=== PATIENT | male | born 1985 | race Hispanic/Latino ===

== ENCOUNTER 2016-09-23 01:36 | Emergency (ER) | payer OTHER ==
[2016-09-23 01:56] VITALS: BMI 30.1
--- NOTE | 2016-09-23 02:41 | ED PDOC ---
Arrival/HPI - General Chief Complaint: Body Fluid Exposure Time Seen by Provider: 09/23/16 01:47 Historian: Patient - History of Present Illness Narrative History of Present Illness (Text): 09/23/16 02:15 Pratik Wells 31 year old male who presents to the emergency department for medical clearance following saliva exposure to the eye. Patient is [employer] who brought. Denies any other complaints at this time. Time/Duration: Prior to Arrival Symptom Onset: Sudden Severity Level: Mild Activities at Onset: Significant Past Medical History - Provider Review Nursing Documentation Reviewed: Yes - Infectious Disease Hx of Infectious Diseases: None - Psychiatric Hx Substance Use: No - Surgical History Hx Orthopedic Surgery: Yes (right elbow 2002) - Anesthesia Hx Anesthesia: No Hx Anesthesia Reactions: No Hx Malignant Hyperthermia: No Family/Social History - Physician Review Nursing Documentation Reviewed: Yes Family/Social History: No Known Family HX Smoking Status: Never Smoked Hx Alcohol Use: Yes Frequency of alcohol use: Socially Hx Substance Use: No Allergies/Home Meds Allergies/Adverse Reactions: Allergies No Known Allergies Allergy (Verified 09/23/16 01:53) Home Medications: Home Meds Medication Instructions Recorded Confirmed Mv-Mn/FA/Lycopene/Lut/Hb#178 [Radu 1 tab PO DAILY 09/23/16 09/23/16 Multivit For Men Caplet] Review of Systems - Review of Systems Constitutional: Normal. absent: Fatigue, Fevers Respiratory: Normal. absent: SOB, Cough Cardiovascular: Normal. absent: Chest Pain Gastrointestinal: Normal Neurological: Normal. absent: Headache, Dizziness Psychiatric: Normal Physical Exam Vital Signs Reviewed: Yes Vital Signs Temp Pulse Resp BP Pulse Ox 09/23/16 04:03 97.6 F 78 16 125/51 L 98 09/23/16 01:56 98.8 F 84 18 129/82 97 Temperature: Afebrile Blood Pressure: Normal Pulse: Regular Respiratory Rate: Normal Appearance: Positive for: Well-Appearing, Non-Toxic, Comfortable Pain Distress: None Mental Status: Positive for: Alert and Oriented X 3 - Systems Exam Head: Present: Atraumatic, Normocephalic Pupils: Present: PERRL Conjunctiva: Present: Normal Respiratory/Chest: Present: Clear to Auscultation, Good Air Exchange. No: Respiratory Distress, Accessory Muscle Use Cardiovascular: Present: Regular Rate and Rhythm, Normal S1, S2. No: Murmurs Abdomen: Present: Normal Bowel Sounds. No: Tenderness, Distention, Peritoneal Signs Neurological: Present: GCS=15, CN II-XII Intact, Speech Normal Skin: Present: Warm, Dry, Normal Color. No: Rashes Psychiatric: Present: Alert, Oriented x 3, Normal Insight, Normal Concentration Medical Decision Making ED Course and Treatment: 09/23/16 02:40 Impression: A 31 year old male who presents to the emergency department for evaluation of saliva exposure to the eye. Plan: -- labs -- Hepatitis B surface AB -- Hepatitis Panel -- HIV 1&2 -- Reassess and disposition Progress Notes: 09/23/16 06:08 Negative rapid HIV. Patient stable for discharge. - Lab Interpretations Lab Results: 09/23/16 02:30 09/23/16 02:30 Lab Results 09/23/16 03:51: HIV-1 Ab Rapid Screen Non reactive 09/23/16 02:30: WBC 4.5, RBC 4.44, Hgb 13.1 L, Hct 37.7 L, MCV 84.9, MCH 29.5, MCHC 34.7, RDW 13.8, Plt Count 175, MPV 10.4, Gran % 43.0 L, Lymph % (Auto) 42.5 H, [place] % (Auto) 9.5 H, Eos % (Auto) 4.6, Baso % (Auto) 0.4, Gran # 1.95, Lymph # 1.9, [place] # 0.4, Eos # 0.2, Baso # 0.02, Sodium 138, Potassium 3.5 L, Chloride 102, Carbon Dioxide 24, Anion Gap 16, BUN 24 H, Creatinine 1.0, Est GFR ( Amer) > 60, Est GFR (Non-Af Amer) > 60, Random Glucose 94, Calcium 9.3, Total Bilirubin 0.5, AST 42, ALT 49, Alkaline Phosphatase 72, Total Protein 7.6, Albumin 4.4, Globulin 3.2, Albumin/Globulin Ratio 1.4, Hepatitis A IgM Ab Negative, Hep Bs Antigen Negative, Hep Bs Antibody Positive, Hep B Core IgM Ab Negative, Hepatitis C Antibody Negative, HIV 1&2 Antibody Screen Negative I have reviewed the lab results: Yes - Scribe Statement The provider has reviewed the documentation as recorded by the Soye Nisa Oliva Provider Attestation: All medical record entries made by the Rebecca were at my direction and personally dictated by me. I have reviewed the chart and agree that the record accurately reflects my personal performance of the history, physical exam, medical decision making, and the department course for this patient. I have also personally directed, reviewed, and agree with the discharge instructions and disposition. Disposition/Present on Arrival - Present on Arrival Any Indicators Present on Arrival: No History of DVT/PE: No History of Uncontrolled Diabetes: No Urinary Catheter: No History of Decub. Ulcer: No History Surgical Site Infection Following: None - Disposition Have Diagnosis and Disposition been Completed?: Yes Diagnosis: Exposure to blood or body fluid Disposition: HOME/ ROUTINE Disposition Time: 05:13 Condition: STABLE Additional Instructions: Please follow up with your doctor for lab results. Return to the ER for any other concerns.
[2016-09-23 02:52] LABS: ADD MANUAL DIFF? NO
[2016-09-23 03:08] LABS: BASO # 0.02 K/mm3 (0.0-2.0); BASO % 0.4 % (0.0-3.0); EOS # 0.2 (0.0-0.7); EOS % 4.6 % (1.5-5.0); GRAN # 1.95 (1.4-6.5); HEMATOCRIT 37.7 % (42.0-52.0); LYMPH # 1.9 (1.2-3.4); LYMPH % 42.5 % (22.0-35.0); MEAN CELL VOLUME 84.9 fL (80.0-105.0); MEAN CORPUSCULAR HEMOGLOBIN 29.5 pg (25.0-35.0); MEAN CORPUSCULAR HGB CONC 34.7 g/dl (31.0-37.0); MEAN PLATELET VOLUME 10.4 fl (7.0-11.0); MONO # 0.4 (0.1-0.6); MONO % 9.5 % (1.0-6.0); PLATELET COUNT 175 10^3/uL (120.0-450.0); RED CELL DISTRIBUTION WIDTH 13.8 % (11.5-14.5); WHITE BLOOD COUNT 4.5 10^3/ul (4.5-11.0)
[2016-09-23 03:18] LABS: ALB/GLOB RATIO 1.4 (1.1-1.8); ALKALINE PHOSPHATASE 72 U/L (38-133); ALT/SGPT 49 U/L (7-56); AST/SGOT 42 U/L (15-59); BILIRUBIN,TOTAL 0.5 mg/dL (0.2-1.3); BLOOD UREA NITROGEN 24 mg/dL (7-21); CALCIUM 9.3 mg/dL (8.4-10.5); CARBON DIOXIDE 24 mmol/L (21-33); CHLORIDE 102 mmol/L (95-110); GFR AFRICAN-AMERICAN > 60; GLUCOSE,RANDOM 94 mg/dL (70-110); POTASSIUM 3.5 mmol/L (3.6-5.0); SODIUM 138 mmol/L (132-148); TOTAL PROTEIN 7.6 g/dL (5.8-8.3)
[2016-09-23 04:05] VITALS: BP 125/51; PULSE 78; RESP 16; TEMP 97.6; O2SAT 98
== END 2016-09-23 05:35 | disposition home or self-care (01) ==
LOC: ED 01:36
DX: Z77.21 Contact with and (suspected) exposure to potentially hazardous body fluids (principal)